=== PATIENT | female | born 1970 | race Two or more races ===

== ENCOUNTER 2025-01-02 13:22 | Outpatient (CLI) | payer OTHER ==
[~2025-01-02 13:22] MED LIST: FOLIC ACID0.4 MG PO; PRENATAL1 TAB PO
== END 2025-01-02 13:28 | disposition home or self-care (01) ==
LOC: MAMO-SONO 13:22
PROVIDERS: ATTEND Specialist
DX: N61.0 Mastitis without abscess (principal)

== ENCOUNTER 2025-01-05 09:34 | Outpatient (CLI) | payer OTHER | END 2025-01-05 09:43 | disposition home or self-care (01) | LOC: SONOGRAMA 09:34 | PROVIDERS: ATTEND Specialist | DX: N61.1 Abscess of the breast and nipple (principal) ==